=== PATIENT | female | born 1990 | race Caucasian/White ===

== ENCOUNTER 2016-09-02 09:45 | Outpatient (RCR) | payer OTHER | END 2016-10-08 09:10 | disposition still patient (30) | LOC: MKS.ESL.PT 09:45 | DX: R10.2 Pelvic and perineal pain (principal) ==

== ENCOUNTER → 2016-10-07 | Outpatient (CLI) | payer OTHER | LOC: BHSO 14:58 | DX: F33.0 Major depressive disorder, recurrent, mild (principal) ==

== ENCOUNTER → 2016-10-15 | Outpatient (CLI) | payer OTHER | LOC: BHSO 09:54 | DX: F33.1 Major depressive disorder, recurrent, moderate (principal) ==

== ENCOUNTER → 2016-10-22 | Outpatient (CLI) | payer OTHER | LOC: BHSO 09:55 | DX: F43.10 Post-traumatic stress disorder, unspecified (principal) ==

== ENCOUNTER → 2016-10-29 | Outpatient (CLI) | payer OTHER | LOC: BHSO 09:51 | DX: F43.10 Post-traumatic stress disorder, unspecified (principal) ==

== ENCOUNTER → 2016-11-05 | Outpatient (CLI) | payer OTHER | LOC: BHSO 12:48 | DX: F43.10 Post-traumatic stress disorder, unspecified (principal) ==

== ENCOUNTER → 2016-11-12 | Outpatient (CLI) | payer OTHER | LOC: BHSO 13:52 | DX: F43.10 Post-traumatic stress disorder, unspecified (principal) ==

== ENCOUNTER → 2016-11-19 | Outpatient (CLI) | payer BC | LOC: BHSO 09:50 | DX: F43.10 Post-traumatic stress disorder, unspecified (principal) ==

== ENCOUNTER 2016-11-22 08:26 | Outpatient (RCR) | payer BC | END 2017-02-04 08:01 | disposition home or self-care (01) | LOC: MKS.ESL.PT 08:26 | DX: R10.2 Pelvic and perineal pain (principal) ==

== ENCOUNTER → 2016-11-26 | Outpatient (CLI) | payer BC | LOC: BHSO 08:50 | DX: F43.10 Post-traumatic stress disorder, unspecified (principal) ==

== ENCOUNTER → 2016-12-05 | Outpatient (CLI) | payer BC | LOC: BHSO 10:53 | DX: F43.10 Post-traumatic stress disorder, unspecified (principal) ==

== ENCOUNTER → 2016-12-10 | Outpatient (CLI) | payer BC | LOC: BHSO 09:57 | DX: F43.10 Post-traumatic stress disorder, unspecified (principal) ==

== ENCOUNTER → 2016-12-24 | Outpatient (CLI) | payer BC | LOC: BHSO 09:49 | DX: F43.10 Post-traumatic stress disorder, unspecified (principal) ==

== ENCOUNTER → 2016-12-31 | Outpatient (CLI) | payer BC | LOC: BHSO 14:47 | DX: F43.10 Post-traumatic stress disorder, unspecified (principal) ==

== ENCOUNTER → 2017-02-11 | Outpatient (CLI) | payer BC | LOC: BHSO 12:49 | DX: F43.10 Post-traumatic stress disorder, unspecified (principal) ==